=== PATIENT | female | born 1965 | race Two or more races ===

== ENCOUNTER 2024-10-31 21:10 | Emergency (ER) | payer OTHER ==
[~2024-10-31] VITALS: Ht 162.6 cm; Wt 90.7 kg
[2024-10-31] MEDS ORDERED: FAMOTIDINE/PF 20 MG in 0.9 % SODIUM CHLORIDE 8 ML IV PUSH STA (21:55)
[2024-10-31 22:56] LABS: PH,URINE 5.5 (5.0-8.0); URINE APPEARANCE Clear; URINE BILIRRUBIN Negative (NEGATIVE); URINE BLOOD Negative; URINE COLOR Yellow; URINE GLUCOSE Negative (NEGATIVE); URINE KETONE Negative (NEGATIVE); URINE LEUKOCYTE Negative; URINE NITRATE Negative; URINE PROTEIN Negative (NEGATIVE); URINE UROBILINOGEN 0.2 E.U./dl
[2024-10-31 22:59] LABS: URINE EPITHELIAL CELLS 2.6 uL (0.0-38.8); URINE WBC 3.1 uL (0.0-23.2)
[2024-10-31 23:01] LABS: HEMOGLOBIN 12.8 g/dL (12.0-15.00); MEAN CELL VOLUME 81.3 fL (80.00-100.00); MEAN CORPUSCULAR HEMOGLOBIN 26.6 pg (27.00-32.0); MEAN CORPUSCULAR HGB CONC 32.7 g/dl (32.0-36.0); PLATELET COUNT 296 K/uL (150-450); RED CELL DISTRIBUTION WIDTH 13.2 % (11.5-14.5)
[2024-10-31 23:15] LABS: URINE BACTERIA 3.6 uL (0.0-1933); URINE RBC 0.8 uL (0.0-20.8)
[2024-10-31 23:22] LABS: CALCIUM 9.5 mg/dL (8.5-10.1); CREATININE SERUM 0.79 mg/dL (0.55-1.02); GFR 74.23; POTASSIUM 3.28 mEq/L (3.5-5.1)
[2024-11-01] MEDS ORDERED: PEPCID40 MG PO (04:08)
[2024-11-01] MEDS ORDERED: PHAZYME500 MG PO (04:08)
[2024-11-01] MEDS ORDERED: ZOFRAN8 MG PO (04:08)
[2024-11-01] MEDS ORDERED: INTESTINEX680 M1 PO (04:08)
[2024-11-01] MEDS ORDERED: LEVSIN/SL0.125 MG SL (04:08)
== END 2024-11-01 04:17 ==
LOC: ER 21:12
PROVIDERS: Emergency Medicine
DX: R10.13 Epigastric pain (principal)
CPT/HCPCS: 36415; 76700; 96365; 99284; J3490